=== PATIENT | male | born 1970 | race Caucasian/White ===

== ENCOUNTER 2023-05-24 12:49 | Inpatient (IN) | payer SELFPAY ==
[2023-05-24 13:01] VITALS: BP 173/107; PULSE 62; RESP 22; TEMP 37.3; O2SAT 97; BMI 34.2
--- NOTE | 2023-05-24 13:07 | PC.PHAR ---
PT STATES TOOK COCAINE 2 DAYS AGO AND SMOKES MARIJUANA FOR SLEEP. 05/24/23
--- NOTE | 2023-05-24 13:24 | W.ED.PSYCHS ---
HPI - Psych General: Chief Complaint: Psychiatric Symptoms Stated Complaint: SI/HI Time Seen by Provider: 05/24/23 12:53 Source: patient Mode of arrival: ambulatory History of Present Illness: 53-year-old presents with complaint of depression homicidal and suicidal behavior. He states he gets very paranoid he has always had paranoid thoughts he never thinks well himself actually is extremely self-critical. He really rates several things going back to childhood. Lately he is obsessed with the possibility of his 's been cheating on him. To the point that he wants to harm himself and others he does self mutilate at times. He has been self-medicating with alcohol in the past and more recently has stopped the alcohol and now uses marijuana each night. Denies any specific plan at this time. MD complaint: suicidal ideation and feels depressed Onset (ago): year(s) Duration: constant and changing over time Relieving factors: none Context: recent drug abuse Associated psychiatric symptoms: depression, suicidal ideation, homicidal ideation and racing thoughts Associated symptoms: Reports depression, homicidal ideation, suicidal ideation and racing thoughts If self harm: admits thoughts of self harm Review of Systems Const: Denies: fever(s), chills, body aches, change in appetite, fatigue or malaise ENMT: Denies: throat pain, ear or mastoid pain, nasal discharge or nasal congestion Card: Denies: chest pain, edema, dyspnea on exertion or orthopnea Resp: Denies: dyspnea, productive cough or non-productive cough GI: Denies: abdominal pain, nausea, vomiting, hematemesis, coffee ground emesis, diarrhea, constipation, bloating, hematochezia or melena : Denies: flank pain, dysuria, urinary frequency or urinary urgency Skin/Breast: Denies: rash or pruritus Psych: Reports: depression, suicidal ideation and homicidal ideation Physical Exam Const: COMMON NORMALS: no acute distress GENERAL APPEARANCE: cooperative and comfortable ORIENTATION/CONSCIOUSNESS: Yes awake, Yes oriented to person, Yes oriented to place and Yes oriented to time HENMT: COMMON NORMALS: normocephalic, atraumatic, hearing grossly normal bilaterally, external ears normal, EAC's normal, TM's normal bilaterally, Normal nasal mucous membranes and turbinates present, moist oral mucous membranes and oropharynx normal HEAD & SCALP: normocephalic and atraumatic NOSE: Normal nasal mucous membranes and turbinates present EXTERNAL EAR: Yes external ears normal EXTERNAL AUDITORY CANAL: EAC's normal TYMPANIC MEMBRANE: TM's normal bilaterally Eye: COMMON NORMALS: Equal, round and reactive pupils present, EOMs intact bilaterally, conjunctivae normal and no scleral icterus CONJUNCTIVA: Yes conjunctivae normal PUPIL: Yes Equal, round and reactive pupils present Neck/C-Spine: COMMON NORMALS: full ROM, no lymphadenopathy, supple and no JVD Lymph: LYMPHATIC: no lymphadenopathy noted and no lymphedema noted Resp: COMMON NORMALS: normal respiratory effort, No retractions, No use of accessory muscles and clear to auscultation bilaterally AUSCULTATION: clear to auscultation bilaterally Cardio: COMMON NORMALS: no JVD, regular rate, regular rhythm and No murmurs present (Cardio) RATE: regular rate RHYTHM: regular rhythm GI: COMMON NORMALS: Soft to palpation and No hepatosplenomegaly present AUSCULTATION: Yes normoactive bowel sounds PALPATION: Yes Soft to palpation, No Tenderness to palpation present (GI), No Guarding due to palpation present (GI) and Yes No hepatosplenomegaly present Extremity: COMMON NORMALS: normal to inspection, capillary refill normal, no clubbing, cyanosis or edema, no calf tenderness and no pedal edema Neuro: SENSORIUM/ORIENTATION: Yes oriented to person, Yes oriented to place and Yes oriented to time Skin: COMMON NORMALS: no rashes or lesions noted GENERAL SKIN EXAM: no rashes or lesions noted Course Vital Signs: Vital signs: Vital Signs Temperature 99.2 F 05/24/23 13:01 Pulse Rate 62 05/24/23 13:01 Respiratory Rate 22 H 05/24/23 13:01 Blood Pressure 173/107 05/24/23 13:01 Pulse Oximetry 97 05/24/23 13:01 Oxygen Delivery Me thod Room Air 05/24/23 13:01 MDM - Psych Medical Decision Making Progressively worsening suicidal homicidal thoughts. He is extremely anxious here in the emergency room will admit discussed with on-call psychiatry orders written Medical Records I reviewed the patient's medical records. Lab Data I reviewed the patient's lab results. 05/24/23 13:52 05/24/23 13:52 Laboratory Results WBC 9.34 10^3/uL (3.29-11.43) 05/24/23 13:52 RBC 5.11 10^6/uL (3.85-5.65) 05/24/23 13:52 Hgb 15.10 g/dL (11.27-16.99) 05/24/23 13:52 Hct 44.6 % (37-53) 05/24/23 13:52 MCV 87.3 fl (82-101) 05/24/23 13:52 MCH 29.5 pg (27-33) 05/24/23 13:52 MCHC 33.9 g/dL (30-55) 05/24/23 13:52 RDW 12.8 % (12.1-15.1) 05/24/23 13:52 Plt Count 238 10^3/cmm (157-399) 05/24/23 13:52 MPV 10.2 fL (7.4-10.4) 05/24/23 13:52 Neut % (Auto) 66.1 % 05/24/23 13:52 Lymph % (Auto) 21.8 % 05/24/23 13:52 [place] % (Auto) 10.6 % 05/24/23 13:52 Eos % (Auto) 0.9 % 05/24/23 13:52 Baso % (Auto) 0.4 % 05/24/23 13:52 Neut # (Auto) 6.17 10^3/uL (1.8-7.7) 05/24/23 13:52 Lymph # (Auto) 2.0 10^3/uL (0.8-4.8) 05/24/23 13:52 [place] # (Auto) 1.0 10^3/uL (0.2-0.9) H 05/24/23 13:52 Eos # (Auto) 0.1 10^3/uL (0.0-0.8) 05/24/23 13:52 Baso # (Auto) 0.0 10^3/uL (0.0-0.1) 05/24/23 13:52 Nucleated RBC % (auto) 0 % 05/24/23 13:52 Nucleated RBCs # 0.0 /100WBC 05/24/23 13:52 Sodium 139 mmol/L (136-145) 05/24/23 13:52 Potassium 3.5 mmol/L (3.5-5.1) 05/24/23 13:52 Chloride 102 mmol/L (98-107) 05/24/23 13:52 Carbon Dioxide 23 mmol/L (22-29) 05/24/23 13:52 Anion Gap 17.5 (5-19) 05/24/23 13:52 BUN 14 mg/dL (6-20) 05/24/23 13:52 Creatinine 1.0 mg/dL (0.7-1.2) 05/24/23 13:52 GFR Calculation 78.8 mL/min (90-130) L 05/24/23 13:52 Glucose 104 mg/dL (65-115) 05/24/23 13:52 Calculated Osmolality 289 mOsm/kg (285-295) 05/24/23 13:52 Calcium 9.4 mg/dL (8.5-10.5) 05/24/23 13:52 Total Bilirubin 0.6 mg/dL (0.15-1.2) 05/24/23 13:52 AST 29 U/L (0-40) 05/24/23 13:52 ALT 26 U/L (0-41) 05/24/23 13:52 Alkaline Phosphatase 54 U/L (40-130) 05/24/23 13:52 Total Protein 7.4 g/dL (6.6-8.7) 05/24/23 13:52 Albumin 4.4 g/dL (3.5-5.2) 05/24/23 13:52 Globulin 3.0 g/dL (1.3-4.6) 05/24/23 13:52 Urine Color Dark yellow (Yellow) 05/24/23 13:02 Urine Appearance Clear (CLEAR) 05/24/23 13:02 Urine pH 5 (5-7) 05/24/23 13:02 Ur Specific [place] 1.020 (1.005-1.030) 05/24/23 13:02 Urine Protein 1+ (Negative) H 05/24/23 13:02 Urine Glucose (UA) Norm (Normal) 05/24/23 13:02 Urine Ketones 1+ (Negative) H 05/24/23 13:02 Urine Blood 2+ (Negative) H 05/24/23 13:02 Urine Nitrate Negative (Negative) 05/24/23 13:02 Urine Bilirubin 1+ (Negative) H 05/24/23 13:02 Urine Urobilinogen 1 mg/dL (Negative) H 05/24/23 13:02 Ur Leukocyte Esterase Trace (Negative) H 05/24/23 13:02 Urine RBC 0-4 /hpf (0-2) H 05/24/23 13:02 Urine WBC 0-4 /hpf (0-5) H 05/24/23 13:02 Ur Squamous Epith Cells 0-4 /hpf (0-5) H 05/24/23 13:02 Amorphous Sediment Not Reportable 05/24/23 13:02 Urine Bacteria Trace /hpf (NONE) 05/24/23 13:02 Urine Mucus Trace /hpf 05/24/23 13:02 Salicylates < 0.3 mg/dL (3-10) L 05/24/23 13:52 Urine Opiates Screen Negative ng/mL (Negative) 05/24/23 13:02 Acetaminophen < 5.0 ug/mL (10-30) L 05/24/23 13:52 Ur Barbiturates Screen Negative ng/mL (Negative) 05/24/23 13:02 Ur Phencyclidine Scrn Negative ng/mL (Negative) 05/24/23 13:02 Ur Amphetamines Screen Negative ng/mL (Negative) 05/24/23 13:02 U Benzodiazepines Scrn Negative ng/mL (Negative) 05/24/23 13:02 Urine Cocaine Screen Positive ng/mL (Negative) H 05/24/23 13:02 U Marijuana (THC) Screen Positive ng/mL (Negative) H 05/24/23 13:02 Ethyl Alcohol < 10 mg/dL (0-10) 05/24/23 13:52 No radiology studies performed this visit Discharge Plan Discharge Patient Disposition: Admitted As Inpatient Admit Provider: Vinnie Hall Clinical Impression: Suicidal ideation, Depression Condition: Stable Coding Level of Care Code ED Kitchen Steward/Stewardess for Rene Hernandez
[2023-05-24 13:42] LABS: Add Urine Microscopic? YES; Amphetamines Screen Urine Negative (Negative); Barbiturates Screen Urine Negative (Negative); Benzodiazepines Screen Urine Negative (Negative); Bilirubin Urine 1+ (Negative); Blood Urine 2+ (Negative); Cocaine Screen Urine Positive (Negative); Glucose Urine UA Norm (Normal); Ketones Urine 1+ (Negative); Leukocyte Esterase Urine Trace (Negative); Nitrate Urine Negative (Negative); Opiate Screen Urine Negative (Negative); PCP Screen Urine Negative (Negative); Protein Urine 1+ (Negative); THC Screen Urine Positive (Negative); Urine Appearance Clear (CLEAR); Urine Color Dark Yellow (Yellow); Urobilinogen Urine 1 mg/dL (Negative); pH Urine 5 (5-7)
[2023-05-24 13:43] LABS: Add Urine Culture? No; Bacteria Urine TRACE /hpf; Mucus Urine TRACE /hpf; RBC Urine 0-4 /hpf (0-2); Squamous Epithelial Cell Urine 0-4 /hpf (0-5); WBC Urine 0-4 /hpf (0-5)
[2023-05-24 14:17] LABS: Basophils % 0.4 %; Eosinophils # 0.1 10^3/uL (0.0-0.8); Eosinophils % 0.9 %; Hematocrit 44.6 % (37-53); Lymphocytes % 21.8 %; Mean Corpuscular HGB Conc 33.9 g/dL (30-55); Mean Corpuscular Hemoglobin 29.5 pg (27-33); Mean Corpuscular Volume 87.3 fl (82-101); Mean Platelet Volume 10.2 fL (7.4-10.4); Monocytes % 10.6 %; Neutrophils # 6.17 10^3/uL (1.8-7.7); Neutrophils % 66.1 %; Nucleated Red Blood Cells % 0 %; Platelet Count 238 10^3/cmm (157-399); Red Blood Count 5.11 10^6/uL (3.85-5.65); Red Cell Distribution Width 12.8 % (12.1-15.1); White Blood Count 9.34 10^3/uL (3.29-11.43)
[2023-05-24 14:47] LABS: Alanine Aminotransferase 26 U/L (0-41); Albumin Level 4.4 g/dL (3.5-5.2); Alkaline Phosphatase 54 U/L (40-130); Anion Gap 17.5 (5-19); Aspartate Amino Transferase 29 U/L (0-40); Blood Urea Nitrogen 14 mg/dL (6-20); Calcium 9.4 mg/dL (8.5-10.5); Carbon Dioxide 23 mmol/L (22-29); Chloride 102 mmol/L (98-107); Glomerular Filtration Rate 78.8 mL/min (90-130); Glucose 104 mg/dL (65-115); Osmolality Calculated 289 mOsm/kg (285-295); Potassium 3.5 mmol/L (3.5-5.1); Sodium 139 mmol/L (136-145); Total Bilirubin 0.6 mg/dL (0.15-1.2); Total Protein 7.4 g/dL (6.6-8.7)
[2023-05-24 14:48] LABS: Acetaminophen < 5.0 ug/mL (10-30); Alcohol Level < 10 mg/dL (0-10); Salicylate < 0.3 mg/dL (3-10)
[2023-05-24] MEDS: nicotine 2 mg Gum BUCCAL ×2 (18:14→19:37)
[2023-05-24 20:22] VITALS: BP 117/59; PULSE 65; RESP 16; TEMP 37; O2SAT 98
[2023-05-24] MEDS: calcium carbonate 500 mg Chew Tablet 1000 MG PO (20:59)
[2023-05-25] MEDS: acetaminophen 325 mg Tablet 650 MG PO (04:45)
[2023-05-25] MEDS: nicotine 2 mg Gum BUCCAL ×2 (05:13→13:58)
[2023-05-25 06:00] VITALS: RESP 18
[2023-05-25] MEDS: OLANZapine 5 mg ODT PO (07:25)
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
[2023-05-25 14:00] VITALS: BP 121/72; PULSE 60; RESP 16; TEMP 36.9; O2SAT 97
[2023-05-25] MEDS: paliperidone ER 6 mg Tablet PO (15:42)
[2023-05-25 20:07] VITALS: BP 116/68; PULSE 71; RESP 18; TEMP 37.1; O2SAT 95
[2023-05-26] MEDS: nicotine 2 mg Gum BUCCAL ×3 (03:58→14:08)
[2023-05-26 06:00] VITALS: BP 128/80; PULSE 57; RESP 17; TEMP 36.5; O2SAT 97; BMI 32.6
--- NOTE | 2023-05-26 08:08 | PC.NURSE ---
During morning shift assessment, patient denies all. Patient states that he feels better now than in the past 6 years, going on to say that he has nothing in my head and that he feels light and free . Patient gives credit to the invega that he was started on yesterday.
[2023-05-26] MEDS: paliperidone ER 6 mg Tablet PO (08:29)
--- NOTE | 2023-05-26 08:45 | P.NPUPN_ITS ---
Subjective NPU 2 Subjective: Patient presented today reporting that he was feeling so much better. He reports that the medication seem to silence a lot of the angry noise that was going on in his brain. He reported that he spoke with his and she was also surprised and how he was doing so quickly. He denied any side effects to the Invega. We discussed work with the treatment team tomorrow on arranging for discharge and the likelihood of discharge in the next 48 hours. Mental Status Exam 2 MSE Comments: This is a overweight versus obese white male in hospital scrubs with limited grooming and eye contact. No abnormal movements. Mostly cooperative with exam in mild distress. Speech was normal rate and volume. Mood described as much better, affect congruent and euthymic. Thought process organized. Thought content: Patient denied suicidal or homicidal ideation, there were no delusions reported or noted, he denied any auditory or visual hallucinations. Attention and concentration were intact and memory appeared mostly reliable but none were formally tested. He is alert and oriented x 3. Insight and judgment are limited impulse control impaired. Vitals/I&O/Wt Last Vital Signs Temp 97.7 F 05/26/23 06:00 Pulse 57 L 05/26/23 06:00 Resp 17 05/26/23 06:00 BP 128/80 05/26/23 06:00 Pulse Ox 97 05/26/23 06:00 O2 Del Method Room Air 05/26/23 06:00 Weight last 48 hrs Weight 97.522 kg Weight 102.058 kg Data NPU 05/24/23 13:52 05/24/23 13:52 A&P Assessment and plan (1) Suicidal ideation: (2) Major depressive disorder, recurrent: (3) PTSD (post-traumatic stress disorder): Plan This is a 53-year-old white male who has a complex history of mental health issues, substance abuse, and trauma. He is currently struggling with mood dysregulation, anxiety, and suicidal ideation. He has a history of self-harm and multiple suicide attempts. He also has a history of unstable relationships and employment. 1. Initiated Invega 6 mg p.o. daily. 2. Continue every 15 minute checks for safety. 3. Encourage individual, group and milieu therapy. 4. Encourage sober living treatment after discharge at the highest level of care to which he is willing to commit. Involuntary Hold Information 2 96 Hour Hold: 96 Hour Involuntary Admission: No Attestations NPU 2 Medical Necessity Statement*: Inpatient hospitalization is medically necessary and the clinically appropriate intervention at this time. We will monitor/initiate medications and make changes as indicated. Likely length of stay 1-3 days. Coding Level of Care Code Acute Code for [facility] Fwd Diagnoses Suicidal ideation R45.851 Major depressive disorder, recurrent F33.9 PTSD (post-traumatic stress disorder) F43.10
[2023-05-26] MEDS: ibuprofen 600 mg Tablet PO (10:12)
[2023-05-26 14:00] VITALS: BP 119/75; PULSE 68; RESP 16; TEMP 36.9; O2SAT 97
[2023-05-26 19:44] VITALS: BP 103/68; PULSE 73; RESP 16; TEMP 36.3; O2SAT 98
[2023-05-27 06:00] VITALS: BP 140/86; PULSE 77; RESP 18; TEMP 36.5; O2SAT 95
[2023-05-27] MEDS: nicotine 2 mg Gum BUCCAL ×2 (06:05→12:13)
[2023-05-27] MEDS: paliperidone ER 6 mg Tablet PO (08:05)
[2023-05-27] MEDS: nicotine 4 mg lozenge MUCOUS MEM (08:22)
[2023-05-27 13:24] VITALS: BP 139/77; PULSE 86; RESP 14; TEMP 36.6; O2SAT 98
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
[2023-05-27 13:40] VITALS: BP 139/77; PULSE 86; RESP 14; TEMP 36.6; O2SAT 98
== END 2023-05-27 14:36 | disposition home or self-care (01) | DRG 885 ==
LOC: ER 13:25 → NP 14:38
PROVIDERS: Admitting Provider Psychiatry & Neurology Psychiatry; Emergency Provider Family Medicine; PCP Family Medicine; Visit Provider Psychiatry & Neurology Psychiatry
DX: F33.9 Major depressive disorder, recurrent, unspecified (principal); R45.851 Suicidal ideations; R45.850 Homicidal ideations; F22 Delusional disorders; F34.81 Disruptive mood dysregulation disorder; F41.9 Anxiety disorder, unspecified; F17.200 Nicotine dependence, unspecified, uncomplicated; F43.10 Post-traumatic stress disorder, unspecified; Z91.52 Personal history of nonsuicidal self-harm
CPT/HCPCS: 36415; 80053; 80306; 80307; 81001; 85025; 97150; 97165; 99285

== ENCOUNTER 2023-08-30 11:32 | Inpatient (IN) | payer OTHER, SELFPAY ==
[2023-08-30 11:41] VITALS: BP 142/83; PULSE 68; RESP 18; TEMP 36.7; O2SAT 95
[2023-08-30] MEDS: LORazepam 2 mg Tablet PO (11:58)
[2023-08-30 12:19] LABS: Basophils # 0.1 10^3/uL (0.0-0.1); Basophils % 0.7 %; Eosinophils # 0.1 10^3/uL (0.0-0.8); Eosinophils % 1.6 %; Hematocrit 47.8 % (37-53); Lymphocytes # 1.9 10^3/uL (0.8-4.8); Lymphocytes % 25.1 %; Mean Corpuscular HGB Conc 33.9 g/dL (30-55); Mean Corpuscular Hemoglobin 29.6 pg (27-33); Mean Corpuscular Volume 87.4 fl (82-101); Mean Platelet Volume 9.3 fL (7.4-10.4); Monocytes # 0.6 10^3/uL (0.2-0.9); Monocytes % 8.2 %; Neutrophils # 4.74 10^3/uL (1.8-7.7); Neutrophils % 64.1 %; Nucleated Red Blood Cells % 0 %; Platelet Count 231 10^3/cmm (157-399); Red Blood Count 5.47 10^6/uL (3.85-5.65); Red Cell Distribution Width 12.7 % (12.1-15.1)
[2023-08-30 12:36] LABS: Alanine Aminotransferase 18 U/L (0-41); Albumin Level 4.4 g/dL (3.5-5.2); Alkaline Phosphatase 60 U/L (40-130); Anion Gap 16.2 (5-19); Aspartate Amino Transferase 13 U/L (0-40); Blood Urea Nitrogen 15 mg/dL (6-20); Calcium 8.6 mg/dL (8.5-10.5); Carbon Dioxide 24 mmol/L (22-29); Chloride 104 mmol/L (98-107); Glomerular Filtration Rate 78.8 mL/min (90-130); Glucose 107 mg/dL (65-115); Osmolality Calculated 291 mOsm/kg (285-295); Potassium 4.2 mmol/L (3.5-5.1); Sodium 140 mmol/L (136-145); Total Bilirubin 0.4 mg/dL (0.15-1.2); Total Protein 7.4 g/dL (6.6-8.7)
[2023-08-30 12:39] LABS: Acetaminophen < 5.0 ug/mL (10-30); Alcohol Level < 10 mg/dL (0-10); Salicylate < 0.3 mg/dL (3-10)
[2023-08-30 12:55] LABS: Amphetamines Screen Urine Negative (Negative); Barbiturates Screen Urine Negative (Negative); Benzodiazepines Screen Urine Negative (Negative); Cocaine Screen Urine Negative (Negative); Opiate Screen Urine Negative (Negative); PCP Screen Urine Negative (Negative); THC Screen Urine Negative (Negative)
--- NOTE | 2023-08-30 12:55 | ED.C_ITS ---
Documented by User: KEN Bowman 08/30/23 13:56 HPI - Psych 2 General: Chief Complaint: Psychiatric Symptoms Stated Complaint: evangelina ELENA Time Seen by Provider: 08/30/23 11:42 Source: patient Mode of arrival: ambulatory Limitations: no limitations History of Present Illness: Patient is a 53-year-old male who presents to the emergency department complaining of suicidal ideations for the past few months. Patient recently was hospitalized [facility] the [facility] for suicidal ideations, was discharged on Invega. He notes the Invega was working great for him until he had an allergic reaction, and he ceased this medication. He notes beginning olanzapine afterwards, and has recently added lithium and prazosin. He notes that since starting these medications his suicidal thoughts have ramped up and he has been constantly agitated and pacing around the room. He states the thoughts are beginning to worsen, current plan is to shoot himself. He notes he recently held a gun in his mouth, did not pull the trigger. He also notes he has tried attempting suicide in the past by taking all of his sleep medication. He has seen a psychiatrist since discharge from hospital in May. He is denying any homicidal ideations. He does note some unspecified auditory and visual hallucinations, which she thinks are from his medications. Overall, he states he needs to be seen and have his medications adjusted again, as he feels he is a threat to himself. Spouse is in the room and agrees with everything he is saying and also believes he needs psychiatric evaluation. Patient denies any other nonpsychiatric symptoms or complaints at this time. He denies any recent drug use or alcohol abuse. Patient is very agitated in the emergency department on examination, will give him Ativan as requested. complaint: suicidal ideation Onset (ago): month(s) Duration: constant and getting worse History of same: Yes Relieving factors: none Exacerbating factors: medication Context: new medication(s) Associated psychiatric symptoms: auditory hallucinations and visual hallucinations Associated symptoms: Reports auditory hallucinations, visual hallucinations and suicidal ideation; Deny homicidal ideation If self harm: admits thoughts of self harm and has plan Review of Systems 2 General: Reports: 10 or more systems reviewed and unremarkable except in HPI and below Const: Denies: fever(s), chills or fatigue Eyes: Denies: change in vision ENMT: Denies: throat pain, ear or mastoid pain or nasal discharge Card: Denies: chest pain, palpitations, swelling of feet/ankles or lightheadedness Resp: Denies: dyspnea, productive cough or wheezing GI: Denies: abdominal pain, nausea, vomiting, diarrhea or constipation : Denies: flank pain, difficulty urinating, dysuria or urinary frequency Musc: Denies: neck pain, back pain or joint pain Skin/Breast: Denies: rash Neuro: Denies: headache(s), numbness in extremities or weakness in extremities Psych: Reports: irritability, visual hallucinations, auditory hallucinations and suicidal ideation; Denies: homicidal ideation PFSH ED 2 PFSH: Medical History Psychiatric care Major depressive disorder, recurrent Depression Social History Smoking and tobacco/nicotine status: current every day tobacco/nicotine user Physical Exam 2 Const: COMMON NORMALS: no acute distress, patient oriented x3 and no limitations GENERAL APPEARANCE: cooperative, comfortable and well developed ORIENTATION/CONSCIOUSNESS: Yes awake, Yes oriented to person, Yes oriented to place and Yes oriented to time HENMT: COMMON NORMALS: normocephalic, atraumatic and hearing grossly normal bilaterally HEAD & SCALP: normocephalic and atraumatic Eye: COMMON NORMALS: Equal, round and reactive pupils present, EOMs intact bilaterally and conjunctivae normal CONJUNCTIVA: Yes conjunctivae normal P UPIL: Yes Equal, round and reactive pupils present Neck/C-Spine: COMMON NORMALS: full ROM, supple and no JVD Resp: COMMON NORMALS: normal respiratory effort, No retractions, No use of accessory muscles and clear to auscultation bilaterally AUSCULTATION: clear to auscultation bilaterally Cardio: COMMON NORMALS: no JVD, regular rate, regular rhythm, No clicks present (Cardio), No murmurs present (Cardio) and No rub (Cardio) RATE: r egular rate RHYTHM: regular rhythm GI: COMMON NORMALS: Normal to inspection, nondistended, normoactive bowel sounds present, Soft to palpation and non-tender AUSCULTATION: Yes normoactive bowel sounds PALPATION: Yes Soft to palpation RECTAL EXAM: Yes deferred Extremity: COMMON NORMALS: normal to inspection, full ROM and capillary refill normal Neuro: COMMON NORMALS: patient oriented x3, CN's II-XII intact bilaterally, moves all extremities, no focal motor deficits and no sensory deficits noted SENSORIUM/ORIENTATION: Yes oriented to person, Yes oriented to place and Yes oriented to time Psych: COMMON NORMALS: mental status grossly normal, Normal thought process present and speech normal APPEARANCE: Yes grossly normal ATTITUDE: Yes agitated ACTIVITY/MOTOR BEHAVIOR: Yes appropriate eye contact SPEECH: Yes normal speech MOOD & AFFECT: Yes irritable THOUGHT PROCESS: Normal thought process present THOUGHT CONTENT: Yes Suicidality present A TTENTION/CONCENTRATION: Yes attention grossly intact MEMORY/COGNITION: Yes memory grossly intact Skin: COMMON NORMALS: no rashes or lesions noted GENERAL SKIN EXAM: no rashes or lesions noted Course 2 Vital Signs: Vital signs: Vital Signs Temperature 97.8 F 09/02/23 06:00 Pulse Rate 78 09/02/23 06:00 Respiratory Rate 18 09/02/23 06:00 Blood Pressure 118/74 09/02/23 06:00 Pulse Oximetry 98 09/02/23 06:00 Oxygen Delivery Me thod Room Air 09/01/23 14:00 MDM - Psych Medical Decision Making Patient seen for suicidal ideations increasing over the past couple months. Recently had inpatient stay [facility] the [facility] and discharged on Invega. He is on multiple medications which is since then, including stopping the Invega due to his self-reported allergic reaction. Plan currently is to shoot himself. Screening psychiatric labs completed and all normal. Patient was given a dose of Ativan in the emergency department. His case was discussed with psychiatrist, Dr. Baumann, who agrees to accept the patient for evaluation in the [facility]. Informed patient of this plan, he agrees. All other questions and concerns addressed at this time. Medical Records I reviewed the patient's medical records. Lab Data I reviewed the patient's lab results. 08/30/23 12:10 08/30/23 12:10 Laboratory Results WBC 7.40 10^3/uL (3.29-11.43) 08/30/23 12:10 RBC 5.47 10^6/uL (3.85-5.65) 08/30/23 12:10 Hgb 16.20 g/dL (11.27-16.99) 08/30/23 12:10 Hct 47.8 % (37-53) 08/30/23 12:10 MCV 87.4 fl (82-101) 08/30/23 12:10 MCH 29.6 pg (27-33) 08/30/23 12:10 MCHC 33.9 g/dL (30-55) 08/30/23 12:10 RDW 12.7 % (12.1-15.1) 08/30/23 12:10 Plt Count 231 10^3/cmm (157-399) 08/30/23 12:10 MPV 9.3 fL (7.4-10.4) 08/30/23 12:10 Neut % (Auto) 64.1 % 08/30/23 12:10 Lymph % (Auto) 25.1 % 08/30/23 12:10 [place] % (Auto) 8.2 % 08/30/23 12:10 Eos % (Auto) 1.6 % 08/30/23 12:10 Baso % (Auto) 0.7 % 08/30/23 12:10 Neut # (Auto) 4.74 10^3/uL (1.8-7.7) 08/30/23 12:10 Lymph # (Auto) 1.9 10^3/uL (0.8-4.8) 08/30/23 12:10 [place] # (Auto) 0.6 10^3/uL (0.2-0.9) 08/30/23 12:10 Eos # (Auto) 0.1 10^3/uL (0.0-0.8) 08/30/23 12:10 Baso # (Auto) 0.1 10^3/uL (0.0-0.1) 08/30/23 12:10 Nucleated RBC % (auto) 0 % 08/30/23 12:10 Nucleated RBCs # 0.0 /100WBC 08/30/23 12:10 Sodium 140 mmol/L (136-145) 08/30/23 12:10 Potassium 4.2 mmol/L (3.5-5.1) 08/30/23 12:10 Chloride 104 mmol/L (98-107) 08/30/23 12:10 Carbon Dioxide 24 mmol/L (22-29) 08/30/23 12:10 Anion Gap 16.2 (5-19) 08/30/23 12:10 BUN 15 mg/dL (6-20) 08/30/23 12:10 Creatinine 1.0 mg/dL (0.7-1.2) 08/30/23 12:10 GFR Calculation 78.8 mL/min (90-130) L 08/30/23 12:10 Glucose 107 mg/dL (65-115) 08/30/23 12:10 Calculated Osmolality 291 mOsm/kg (285-295) 08/30/23 12:10 Calcium 8.6 mg/dL (8.5-10.5) 08/30/23 12:10 Total Bilirubin 0.4 mg/dL (0.15-1.2) 08/30/23 12:10 AST 13 U/L (0-40) 08/30/23 12:10 ALT 18 U/L (0-41) 08/30/23 12:10 Alkaline Phosphatase 60 U/L (40-130) 08/30/23 12:10 Total Protein 7.4 g/dL (6.6-8.7) 08/30/23 12:10 Albumin 4.4 g/dL (3.5-5.2) 08/30/23 12:10 Globulin 3.0 g/dL (1.3-4.6) 08/30/23 12:10 Salicylates < 0.3 mg/dL (3-10) L 08/30/23 12:10 Urine Opiates Screen Negative ng/mL (Negative) 08/30/23 12:00 Acetaminophen < 5.0 ug/mL (10-30) L 08/30/23 12:10 Ur Barbiturates Screen Negative ng/mL (Negative) 08/30/23 12:00 Ur Phencyclidine Scrn Negative ng/mL (Negative) 08/30/23 12:00 Ur Amphetamines Screen Negative ng/mL (Negative) 08/30/23 12:00 U Benzodiazepines Scrn Negative ng/mL (Negative) 08/30/23 12:00 Urine Cocaine Screen Negative ng/mL (Negative) 08/30/23 12:00 U Marijuana (THC) Screen Negative ng/mL (Negative) 08/30/23 12:00 Ethyl Alcohol < 10 mg/dL (0-10) 08/30/23 12:10 No radiology studies performed this visit Discharge Plan Discharge Patient Disposition: Admitted As Inpatient Admit Provider: Wale Mitchell Clinical Impression: Suicidal ideation Condition: Stable Coding Level of Care Code ED Master Welder for Rene Fwd Documented by User: Mike Frausto, 09/02/23 07:06 HPI - Psych 2 General: Chief Complaint: Psychiatric Symptoms Stated Complaint: MHE, med eval Time Seen by Provider: 08/30/23 11:42 PFS ED 2 PFSH: Medical History Psychiatric care Major depressive disorder, recurrent Depression Social History Smoking and tobacco/nicotine status: current every day tobacco/nicotine user Course 2 Vital Signs: Vital signs: Vital Signs Temperature 97.8 F 09/02/23 06:00 Pulse Rate 78 09/02/23 06:00 Respiratory Rate 18 09/02/23 06:00 Blood Pressure 118/74 09/02/23 06:00 Pulse Oximetry 98 09/02/23 06:00 Oxygen Delivery Me thod Room Air 09/01/23 14:00 MDM - Psych Medical Decision Making Patient seen for suicidal ideations increasing over the past couple months. Recently had inpatient stay [facility] the [facility] and discharged on Invega. He is on multiple medications which is since then, including stopping the Invega due to his self-reported allergic reaction. Plan currently is to shoot himself. Screening psychiatric labs completed and all normal. Patient was given a dose of Ativan in the emergency department. His case was discussed with psychiatrist, Dr. Baumann, who agrees to accept the patient for evaluation in the [facility]. Informed patient of this plan, he agrees. All other questions and concerns addressed at this time. Chart reviewed Lab Data 08/30/23 12:10 08/30/23 12:10 Laboratory Results WBC 7.40 10^3/uL (3.29-11.43) 08/30/23 12:10 RBC 5.47 10^6/uL (3.85-5.65) 08/30/23 12:10 Hgb 16.20 g/dL (11.27-16.99) 08/30/23 12:10 Hct 47.8 % (37-53) 08/30/23 12:10 MCV 87.4 fl (82-101) 08/30/23 12:10 MCH 29.6 pg (27-33) 08/30/23 12:10 MCHC 33.9 g/dL (30-55) 08/30/23 12:10 RDW 12.7 % (12.1-15.1) 08/30/23 12:10 Plt Count 231 10^3/cmm (157-399) 08/30/23 12:10 MPV 9.3 fL (7.4-10.4) 08/30/23 12:10 Neut % (Auto) 64.1 % 08/30/23 12:10 Lymph % (Auto) 25.1 % 08/30/23 12:10 [place] % (Auto) 8.2 % 08/30/23 12:10 Eos % (Auto) 1.6 % 08/30/23 12:10 Baso % (Auto) 0.7 % 08/30/23 12:10 Neut # (Auto) 4.74 10^3/uL (1.8-7.7) 08/30/23 12:10 Lymph # (Auto) 1.9 10^3/uL (0.8-4.8) 08/30/23 12:10 [place] # (Auto) 0.6 10^3/uL (0.2-0.9) 08/30/23 12:10 Eos # (Auto) 0.1 10^3/uL (0.0-0.8) 08/30/23 12:10 Baso # (Auto) 0.1 10^3/uL (0.0-0.1) 08/30/23 12:10 Nucleated RBC % (auto) 0 % 08/30/23 12:10 Nucleated RBCs # 0.0 /100WBC 08/30/23 12:10 Sodium 140 mmol/L (136-145) 08/30/23 12:10 Potassium 4.2 mmol/L (3.5-5.1) 08/30/23 12:10 Chloride 104 mmol/L (98-107) 08/30/23 12:10 Carbon Dioxide 24 mmol/L (22-29) 08/30/23 12:10 Anion Gap 16.2 (5-19) 08/30/23 12:10 BUN 15 mg/dL (6-20) 08/30/23 12:10 Creatinine 1.0 mg/dL (0.7-1.2) 08/30/23 12:10 GFR Calculation 78.8 mL/min (90-130) L 08/30/23 12:10 Glucose 107 mg/dL (65-115) 08/30/23 12:10 Calculated Osmolality 291 mOsm/kg (285-295) 08/30/23 12:10 Calcium 8.6 mg/dL (8.5-10.5) 08/30/23 12:10 Total Bilirubin 0.4 mg/dL (0.15-1.2) 08/30/23 12:10 AST 13 U/L (0-40) 08/30/23 12:10 ALT 18 U/L (0-41) 08/30/23 12:10 Alkaline Phosphatase 60 U/L (40-130) 08/30/23 12:10 Total Protein 7.4 g/dL (6.6-8.7) 08/30/23 12:10 Albumin 4.4 g/dL (3.5-5.2) 08/30/23 12:10 Globulin 3.0 g/dL (1.3-4.6) 08/30/23 12:10 Salicylates < 0.3 mg/dL (3-10) L 08/30/23 12:10 Urine Opiates Screen Negative ng/mL (Negative) 08/30/23 12:00 Acetaminophen < 5.0 ug/mL (10-30) L 08/30/23 12:10 Ur Barbiturates Screen Negative ng/mL (Negative) 08/30/23 12:00 Ur Phencyclidine Scrn Negative ng/mL (Negative) 08/30/23 12:00 Ur Amphetamines Screen Negative ng/mL (Negative) 08/30/23 12:00 U Benzodiazepines Scrn Negative ng/mL (Negative) 08/30/23 12:00 Urine Cocaine Screen Negative ng/mL (Negative) 08/30/23 12:00 U Marijuana (THC) Screen Negative ng/mL (Negative) 08/30/23 12:00 Ethyl Alcohol < 10 mg/dL (0-10) 08/30/23 12:10 Discharge Plan Discharge Patient Disposition: Admitted As Inpatient Admit Provider: Wale Mitchell Clinical Impression: Suicidal ideation Condition: Stable Coding Level of Care Code ED Master Welder for Rene Hernandez
[2023-08-30 13:21] VITALS: BP 112/77; PULSE 76; RESP 18; O2SAT 97
[2023-08-30 13:29] VITALS: BP 128/85; PULSE 67; RESP 20; TEMP 36.7; O2SAT 96
[2023-08-30 14:00] VITALS: BP 128/85; PULSE 67; RESP 20; TEMP 36.7; O2SAT 96
--- NOTE | 2023-08-30 14:19 | PC.NURSE ---
Patient states he has been feeling suicidal with a plan to shoot himself in the head. He says he was prescribed invega when he was admitted to this facility 05/24/23 and that he felt better then than he had in a long time. However, he says it felt like more of a honeymoon phase because it started making him feel like he was suffocating and like his mouth was glued shut. Patient states Dr. Aranda has prescribed lithium, zyprexa, and prazosin but he doesn't feel himself. He says he does not have any willpower or interest in the things that he would usually like to do. Patient denies any current si/hi and avh. He does admit that he occasionally hears voices saying hey you and will see images quickly flash before him at times. He denies any current drug use and his tox screen is negative. He says he came to the hospital hoping to get his medications corrected and felt it would be best to be under supervision during this. Patient cooperative throughout assessment.
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
[2023-08-30] MEDS: lithium carbonate 150 mg Capsule 300 MG PO (18:27)
[2023-08-30 20:10] VITALS: BP 116/70; PULSE 77; RESP 18; TEMP 36.6; O2SAT 96
[2023-08-30] MEDS: prazosin 1 mg Capsule 2 MG PO (21:04)
[2023-08-30] MEDS: OLANZapine 10 mg TABLET PO (21:04)
[2023-08-30] MEDS: trazodone 50 mg Tablet PO (21:05)
[2023-08-30] MEDS: hyDROXYzine 25 mg Capsule 50 MG PO (21:05)
[2023-08-31 06:00] VITALS: BP 117/78; PULSE 77; RESP 18; TEMP 36.6; O2SAT 98
[2023-08-31] MEDS: lithium carbonate 150 mg Capsule 300 MG PO ×2 (07:56→17:26)
--- NOTE | 2023-08-31 09:16 | PC.NURSE ---
During assessment, patient appears anxious and states that his anxiety level is high . Patient offered PRn medication to help with anxiety, patient declined at this time. Patient denies SI, HI, AVH.
--- NOTE | 2023-08-31 10:05 | P.NPUPN_ITS ---
Subjective NPU 2 Subjective: 53-year-old male with unspecified mood d isorder and PTSD admitted with increased suicidal ideation and increased agitation. Patient reported that he was feeling calmer. He reported that his thoughts and angry noise continued to be present. Patient reported adequate sleep. He reported no side effects from the lithium. He had described having internal anxiety about needing to move that appeared to be worse with the olanzapine. However, the patient had also reported that he had had problems with needing to walk around prior to the use of antipsychotics as well. He had reported that his thoughts continue to move faster. The patient was compliant on the milieu and somewhat isolative on the unit. He had reported adequate sleep. He had continued to express depressed mood. Patient had not endorsed any recent nightmares since starting prazosin 2 weeks ago. Mental Status Exam 2 MSE Comments: This is a overweight versus obese white male in hospital scrubs with limited grooming and eye contact. No abnormal movements except for mild psychomotor agitation. He was cooperative with exam and in mild to moderate distress. Speech was normal in rate and volume. Mood described as down. His affect was more restricted today. There was evidence of poor frustration tolerance on interview. Thought process was linear and organized. Thought content: Patient endorsed suicidal ideationwith no plan. He denied homicidal ideation. There were no delusions reported or noted, he denied any auditory or visual hallucinations. Attention and concentration were intact and memory appeared mostly reliable but none were formally tested. He is alert and oriented x 3. Insight was poor and judgment is poor. The patient's impulse control appeared impaired. Vitals/I&O/Wt Last Vital Signs Temp 97.8 F 08/31/23 06:00 Pulse 77 08/31/23 06:00 Resp 18 08/31/23 06:00 BP 117/78 08/31/23 06:00 Pulse Ox 98 08/31/23 06:00 O2 Del Method Room Air 08/30/23 13:30 Data NPU 08/30/23 12:10 08/30/23 12:10 A&P Assessment and plan (1) Suicidal ideation: (2) PTSD (post-traumatic stress disorder): (3) Unspecified mood [affective] disorder: Plan This is a 53-year-old white male who has a complex history of mental health issues, substance abuse, and trauma currently diagnosed with PTSD, and depression with some questionable manic symptoms. He is continues to struggle with mood dysregulation, anxiety, and suicidal ideation. 1. Continue [place] 300mg bid to target impulsivity. Zyprexa 10mg at night. Continue Prazosin to 2mg at night to target PTSD related nightmares. 2. Continue every 15 minute checks for safety. 3. Encourage individual, group and milieu therapy. 4. Encourage sober living treatment after discharge at the highest level of care to which he is willing to commit. Involuntary Hold Information 2 96 Hour Hold: 96 Hour Involuntary Admission: No Attestations NPU 2 Medical Necessity Statement*: Inpatient hospitalization is medically necessary and deemed to ?be ?the clinically appropriate intervention ?at this time.? We will monitor/initiate medications and make changes as indicated.? The patient?s likely length of stay 5-7 days. Coding Level of Care Code Acute Code for Chg Fwd Diagnoses Suicidal ideation R45.851 PTSD (post-traumatic stress disorder) F43.10 Unspecified mood [affective] disorder F39
[2023-08-31 14:00] VITALS: BP 137/96; PULSE 94; RESP 16; TEMP 36.7; O2SAT 98
[2023-08-31 19:55] VITALS: BP 118/73; PULSE 93; RESP 18; TEMP 36.7; O2SAT 98
[2023-08-31] MEDS: prazosin 1 mg Capsule 2 MG PO (21:39)
[2023-08-31] MEDS: OLANZapine 10 mg TABLET PO (21:41)
[2023-09-01 06:00] VITALS: BP 132/81; PULSE 75; RESP 18; TEMP 36.4; O2SAT 98
[2023-09-01] MEDS: lithium carbonate 150 mg Capsule 300 MG PO ×2 (08:23→18:26)
[2023-09-01 14:00] VITALS: BP 120/77; PULSE 88; RESP 16; TEMP 36.8; O2SAT 94
--- NOTE | 2023-09-01 17:19 | P.NPUPN_ITS ---
Subjective NPU 2 Subjective: 53-year-old male with unspecified mood d isorder and PTSD admitted with increased suicidal ideation and increased agitation. The patient reported that he was feeling much better today. He reported that his thoughts were less scattered. He reported adequate energy. He did not report feeling his irritable and agitated. Patient had stated that his thoughts of suicide had been better controlled. He had reported no nightmares at this time and reported occasional flashbacks regarding his trauma that were less intense and fleeting today. He had continued to report some anxiety. He had reported feeling more hopeful about the future Mental Status Exam 2 MSE Comments: This is a overweight versus obese white male in hospital scrubs with limited grooming and eye contact. No abnormal movements except for mild psychomotor retardation today. He was cooperative with exam and in mild to moderate distress. Speech was normal in rate and volume. Mood described as better. His affect was slightly restricted. Thought process was linear and organized. Thought content: Patient endorsed no suicidal or homicidal ideation. There were no delusions reported or noted, he denied any auditory or visual hallucinations. Attention and concentration were intact and memory appeared mostly reliable but none were formally tested. He is alert and oriented x 3. Insight was poor and judgment is poor. The patient's impulse control appeared to be improving. Vitals/I&O/Wt Last Vital Signs Temp 98.3 F 09/01/23 14:00 Pulse 88 09/01/23 14:00 Resp 16 09/01/23 14:00 BP 120/77 09/01/23 14:00 Pulse Ox 94 09/01/23 14:00 O2 Del Method Room Air 09/01/23 14:00 Weight last 48 hrs Weight 102.965 kg Data NPU 08/30/23 12:10 08/30/23 12:10 A&P Assessment and plan (1) Suicidal ideation: (2) PTSD (post-traumatic stress disorder): (3) Unspecified mood [affective] disorder: Plan This is a 53-year-old white male who has a complex history of mental health issues, substance abuse, and trauma currently diagnosed with PTSD, and depression with some questionable manic symptoms. He is continues to struggle with mood dysregulation, anxiety, and suicidal ideation. 1. Continue [place] 300mg bid to target impulsivity. Zyprexa 10mg at night. Continue Prazosin to 2mg at night to target PTSD related nightmares. 2. Continue every 15 minute checks for safety. 3. Encourage individual, group and milieu therapy. 4. Encourage sober living treatment after discharge at the highest level of care to which he is willing to commit. Involuntary Hold Information 2 96 Hour Hold: 96 Hour Involuntary Admission: No Attestations NPU 2 Medical Necessity Statement*: Inpatient hospitalization is medically necessary and deemed to ?be ?the clinically appropriate intervention ?at this time.? We will monitor/initiate medications and make changes as indicated.? The patient?s likely length of stay 1-2 days. Coding Level of Care Code Acute Code for Chg Fwd Diagnoses Suicidal ideation R45.851 PTSD (post-traumatic stress disorder) F43.10 Unspecified mood [affective] disorder F39
[2023-09-01 19:54] VITALS: BP 113/78; PULSE 68; RESP 18; TEMP 36.7; O2SAT 97
[2023-09-01] MEDS: prazosin 1 mg Capsule 2 MG PO (21:50)
[2023-09-01] MEDS: OLANZapine 10 mg TABLET PO (21:50)
[2023-09-02 06:00] VITALS: BP 118/74; PULSE 78; RESP 18; TEMP 36.6; O2SAT 98
[2023-09-02] MEDS: lithium carbonate 150 mg Capsule 300 MG PO (08:15)
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
[2023-09-02 13:15] VITALS: BP 118/74; PULSE 78; RESP 18; TEMP 36.6; O2SAT 98
== END 2023-09-02 13:23 | disposition home or self-care (01) | DRG 885 ==
LOC: ER 13:08 → NP 13:15
PROVIDERS: Admitting Provider Psychiatry & Neurology Psychiatry; Emergency Provider Physician Assistant; PCP Family Medicine; Visit Provider Psychiatry & Neurology Psychiatry
DX: F39 Unspecified mood [affective] disorder (principal); R45.851 Suicidal ideations; F43.10 Post-traumatic stress disorder, unspecified; F32.A Depression, unspecified
CPT/HCPCS: 36415; 80053; 80306; 80307; 85025; 97150; 97165; 99285